=== PATIENT | male | born 1945 | race Caucasian/White ===

== ENCOUNTER 2017-08-09 11:37 | Day surgery (SDC) | payer OTHER ==
[2017-08-09] MEDS: BUPIVACAINE 0.25% (MPF) 30 ML INJ INJ
[2017-08-09] MEDS ORDERED: BUPIVACAINE 0.5% (SDV) 30 ML INJ (12:18)
[2017-08-09] MEDS ORDERED: PROPOFOL 20 ML (12:49)
[2017-08-09] MEDS ORDERED: MIDAZOLAM 1 MG/ML 2 ML INJ (12:49)
[2017-08-09] MEDS ORDERED: FENTAnyl 50 MCG/ML VIAL (12:49)
[2017-08-09] MEDS ORDERED: LIDOCAINE 2% (SDV) 5 ML INJ (12:49)
[2017-08-09] MEDS ORDERED: ONDANSETRON 4 MG INJ (13:00)
[2017-08-09] MEDS ORDERED: CEFAZOLIN 1 GM INJ (13:00)
[2017-08-09] MEDS ORDERED: FAMOTIDINE 20 MG INJ (13:00)
[2017-08-09] MEDS ORDERED: ONDANSETRON 4 MG INJ IV (14:30)
[2017-08-09] MEDS ORDERED: MEPERIDINE 25 MG INJ IV (14:30)
[2017-08-09] MEDS ORDERED: DIPHENHYDRAMINE 50 MG INJ IV (14:30)
[2017-08-09] MEDS ORDERED: OXYCODONE/ACETAMINOPHEN (5/325) TAB PO (14:30)
[2017-08-09] MEDS ORDERED: FENTAnyl 50 MCG/ML VIAL IV (14:30)
[2017-08-09] MEDS ORDERED: LABETALOL HCL 20MG INJ IV (14:30)
[2017-08-09] MEDS ORDERED: hydrALAzine 20 MG INJ IV (14:30)
[2017-08-09] MEDS ORDERED: PROCHLORPERAZINE 10 MG INJ IV (14:30)
[2017-08-09] MEDS ORDERED: HYDROmorphONE (0.2 MG/ML) 10ML SYG IV ×3 (14:30)
[2017-08-09] MEDS: HYDROCODONE/APAP (5/325) TAB PO (15:30)
== END 2017-08-09 15:57 | disposition home or self-care (01) ==
LOC: SDS 11:37
DX: N43.3 Hydrocele, unspecified (principal); E11.9 Type 2 diabetes mellitus without complications; E78.5 Hyperlipidemia, unspecified; I10 Essential (primary) hypertension; E66.01 Morbid (severe) obesity due to excess calories; Z68.41 Body mass index [BMI] 40.0-44.9, adult
CPT/HCPCS: 55040; 82962; 88302